=== PATIENT | female | born 1955 | race American Indian/Alaskan Native ===

== ENCOUNTER 2018-02-14 07:59 | Outpatient (CLI) | payer MEDICAID ==
[2018-02-14 08:27] LABS: Blood Urea Nitrogen 9 mg/dL (7-17)
--- NOTE | 2018-02-14 14:45 | Ultrasound Report ---
ULTRASOUND ABDOMEN LIMITED: TECHNIQUE: Transabdominal ultrasound with color Doppler interrogation. HISTORY: Elevation of level of transaminase. COMPARISON: none. FINDINGS: LIVER: Normal. BILIARY SYSTEM: Normal. PANCREAS: Normal. RIGHT KIDNEY: Normal. PROXIMAL AORTA: Normal. ASCITES: None. IMPRESSION: Unremarkable exam.
== END 2018-02-14 08:00 | disposition home or self-care (01) ==
LOC: US 07:59
PROVIDERS: ATTEND Internal Medicine
DX: R74.0 Nonspecific elevation of levels of transaminase and lactic acid dehydrogenase [LDH] (principal)
CPT/HCPCS: 36415; 76700; 82565; 84520